=== PATIENT | male | born 1995 | race Caucasian/White ===

== ENCOUNTER 2019-11-10 10:47 | Emergency (ER) | payer OTHER ==
[~2019-11-10] VITALS: Ht 188 cm; Wt 93.0 kg
[2019-11-10] MEDS ORDERED: CEFADROXIL500 MG PO (11:18)
== END 2019-11-10 12:12 | disposition home or self-care (01) ==
LOC: ER 10:47
DX: L02.818 Cutaneous abscess of other sites (principal); B96.89 Other specified bacterial agents as the cause of diseases classified elsewhere